=== PATIENT | male | born 1930 | race Caucasian/White ===

== ENCOUNTER 2018-09-27 06:23 | Day surgery (SDC) | payer MEDICARE, OTHER ==
[~2018-09-27] VITALS: Ht 165.1 cm; Wt 83.0 kg
[~2018-09-27 06:23] MED LIST: ALBU90OI61; ATOR10 PO; AZIT250 PO; CAND16 PO; CAND4; COD LIVER OIL1 EACH; FLUT.05NI; FLUT44OIA; FOLI1; HYDACE10B PO; HYDACE5; META800 PO; METO25ER PO; OMEP20ER PO; QVAR7.3 G1; VIT1CAPS12; VIT1CAPS12 PO; WARF5 PO
[2018-09-27] MEDS ORDERED: Aspirin EC81 MG PO (07:23)
[2018-09-27] MEDS ORDERED: QVAR REDIHALE10.6 G1 INH (07:24)
[2018-09-27] MEDS ORDERED: ALLO100 PO (07:25)
[2018-09-27] MEDS ORDERED: FOLIC ACID PO (07:29)
[2018-09-27] MEDS ORDERED: OMEGA 3 PO (07:29)
[2018-09-27] MEDS ORDERED: Flonase 0.05% N16 GM (07:30)
--- NOTE | 2018-09-27 07:48 | NUR ---
AT 0744 TIME OUT COMPLETE.
--- NOTE | 2018-09-27 07:56 | NUR ---
LINK COMPLETE; PT TOLERATED WELLL.
--- NOTE | 2018-09-27 08:06 | NUR ---
CALL LIGHT IN REACH.
--- NOTE | 2018-09-27 08:06 | NUR ---
PT'S DAUGHTER IN ROOM. PT TALKING WITH DAUGHTER.
[2018-09-27] MEDS ORDERED: Aspir 8181 MG PO (08:20)
--- NOTE | 2018-09-27 08:43 | NUR ---
DR TORRES IN ROOM TO SEE PT.
--- NOTE | 2018-09-27 09:16 | NUR ---
LINK DISCHARGE INSTRUCTIONS REVIEWED ALL QUESTIONS ANSWERED. PT ABLE TO TAKE SIPS OF WATER WITH NO ASPIRATION. 18 G IV DISCONTINUED FROM RIGHT HAND WITH INTACT CANNULA. PT ESCORTED OUT VIA WHEELCHAIR ESCORT.
== END 2018-09-27 22:49 | disposition home or self-care (01) ==
LOC: MHTC 06:23
DX: I33.0 Acute and subacute infective endocarditis (principal); G45.9 Transient cerebral ischemic attack, unspecified; Z79.01 Long term (current) use of anticoagulants
CPT/HCPCS: 93312; 93325; J7120

== ENCOUNTER → 2019-01-12 | Outpatient (CLI) | payer MEDICARE, OTHER ==
[~2019-01-12] MED LIST changes: +ALLO100 PO; +Aspir 8181 MG PO; +Aspirin EC81 MG PO; +FOLIC ACID PO; +Flonase 0.05% N16 GM; +OMEGA 3 PO; +QVAR REDIHALE10.6 G1 INH
== END | disposition home or self-care (01) ==
LOC: LAB SHORT 13:40 → PLD 13:40
DX: C44.219 Basal cell carcinoma of skin of left ear and external auricular canal (principal)
CPT/HCPCS: 88305

== ENCOUNTER 2019-01-22 08:09 | Day surgery (SDC) | payer MEDICARE, OTHER ==
[~2019-01-22 08:09] MED LIST changes: +Atacand8 MG PO; +CHOL10002 PO; +OMEG1CAP30 PO
[2019-01-23] MEDS ORDERED: ENOX80I SC (08:34)
== END 2019-01-22 16:29 | disposition home or self-care (01) ==
LOC: ATC 08:09
DX: Z51.81 Encounter for therapeutic drug level monitoring (principal); I10 Essential (primary) hypertension; E78.5 Hyperlipidemia, unspecified; E03.9 Hypothyroidism, unspecified; K21.9 Gastro-esophageal reflux disease without esophagitis; Z79.01 Long term (current) use of anticoagulants; Z95.2 Presence of prosthetic heart valve
CPT/HCPCS: 96372; J1650

== ENCOUNTER 2019-01-23 07:36 | Day surgery (SDC) | payer MEDICARE, OTHER ==
[2019-01-23] MEDS ORDERED: ENOX80I SC (08:34)
--- NOTE | 2019-01-23 16:33 | NUR ---
INFUSION STOP TIME, 1633.
== END 2019-01-23 16:30 | disposition home or self-care (01) ==
LOC: ATC 07:36
DX: Z51.81 Encounter for therapeutic drug level monitoring (principal); Z79.01 Long term (current) use of anticoagulants; I10 Essential (primary) hypertension; E03.9 Hypothyroidism, unspecified; E78.5 Hyperlipidemia, unspecified; I48.91 Unspecified atrial fibrillation; K21.9 Gastro-esophageal reflux disease without esophagitis; Z95.2 Presence of prosthetic heart valve
CPT/HCPCS: 96372; J1650

== ENCOUNTER 2019-01-24 07:15 | Day surgery (SDC) | payer MEDICARE, OTHER ==
[~2019-01-24 07:15] MED LIST changes: +ENOX80I SC
== END 2019-01-24 16:15 | disposition home or self-care (01) ==
LOC: ATC 07:15
DX: Z45.2 Encounter for adjustment and management of vascular access device (principal); Z95.2 Presence of prosthetic heart valve; Z79.01 Long term (current) use of anticoagulants; I48.91 Unspecified atrial fibrillation; I10 Essential (primary) hypertension; E03.9 Hypothyroidism, unspecified; E78.5 Hyperlipidemia, unspecified; K21.9 Gastro-esophageal reflux disease without esophagitis; Z87.891 Personal history of nicotine dependence
CPT/HCPCS: J1650

== ENCOUNTER 2019-01-26 07:38 | Day surgery (SDC) | payer MEDICARE, OTHER ==
[2019-01-27] MEDS ORDERED: WARF5 PO (07:33)
== END 2019-01-26 23:02 | disposition home or self-care (01) ==
LOC: ATC 07:38
DX: Z51.81 Encounter for therapeutic drug level monitoring (principal); E03.9 Hypothyroidism, unspecified; E78.5 Hyperlipidemia, unspecified; I10 Essential (primary) hypertension; I48.91 Unspecified atrial fibrillation; K21.9 Gastro-esophageal reflux disease without esophagitis; Z79.01 Long term (current) use of anticoagulants; Z95.2 Presence of prosthetic heart valve
CPT/HCPCS: J1650

== ENCOUNTER 2019-01-27 06:28 | Day surgery (SDC) | payer MEDICARE, OTHER ==
[~2019-01-27] VITALS: Ht 170.2 cm; Wt 79.3 kg
[~2019-01-27 06:28] MED LIST changes: -FLUT.05NI
[2019-01-27] MEDS ORDERED: WARF5 PO (07:33)
== END 2019-01-27 08:56 | disposition home or self-care (01) ==
LOC: ORSCSDS 06:28
PROVIDERS: Internal Medicine Gastroenterology
PROC: 0DBN8ZX Excision of Sigmoid Colon, Via Natural or Artificial Opening Endoscopic, Diagnostic (ICD-10-PCS; principal; 2019-01-27 08:00)
PROC: 0DBL8ZX Excision of Transverse Colon, Via Natural or Artificial Opening Endoscopic, Diagnostic (ICD-10-PCS; principal; 2019-01-27 08:00)
PROC: 0DBK8ZX Excision of Ascending Colon, Via Natural or Artificial Opening Endoscopic, Diagnostic (ICD-10-PCS; principal; 2019-01-27 08:00)
DX: R19.4 Change in bowel habit (principal); K63.5 Polyp of colon; D12.2 Benign neoplasm of ascending colon; D12.3 Benign neoplasm of transverse colon; K64.4 Residual hemorrhoidal skin tags; K62.5 Hemorrhage of anus and rectum; K57.30 Diverticulosis of large intestine without perforation or abscess without bleeding; Z86.010 Personal history of colon polyps; K21.9 Gastro-esophageal reflux disease without esophagitis; I10 Essential (primary) hypertension; E78.5 Hyperlipidemia, unspecified; I48.91 Unspecified atrial fibrillation; J44.9 Chronic obstructive pulmonary disease, unspecified; E03.9 Hypothyroidism, unspecified; Z87.891 Personal history of nicotine dependence; Z79.01 Long term (current) use of anticoagulants; Z79.82 Long term (current) use of aspirin; Z79.899 Other long term (current) drug therapy
CPT/HCPCS: 88305; J0330; J0461; J2405; J2704; J7120

== ENCOUNTER 2019-01-27 12:39 | Day surgery (SDC) | payer MEDICARE, OTHER ==
[~2019-01-27 12:39] MED LIST changes: +FLUT.05NI
== END 2019-01-27 16:49 | disposition home or self-care (01) ==
LOC: ATC 12:39
DX: Z51.81 Encounter for therapeutic drug level monitoring (principal); I10 Essential (primary) hypertension; I48.91 Unspecified atrial fibrillation; K21.9 Gastro-esophageal reflux disease without esophagitis; E03.9 Hypothyroidism, unspecified; E78.5 Hyperlipidemia, unspecified; Z79.01 Long term (current) use of anticoagulants; Z79.899 Other long term (current) drug therapy; Z87.891 Personal history of nicotine dependence; Z95.2 Presence of prosthetic heart valve
CPT/HCPCS: 96372; J1650

== ENCOUNTER 2019-01-28 00:12 | Day surgery (SDC) | payer MEDICARE, OTHER ==
[~2019-01-28 00:12] MED LIST changes: -FLUT.05NI
[2019-01-28 16:51] LABS: Bun/Creatinine Ratio 25.9 (12.0-20.0); Calcium, Blood 8.5 mg/dL (8.5-10.1); Creatinine, Blood 1.35 mg/dL (0.60-1.20); Potassium, Blood 4.4 mmol/L (3.5-5.5)
== END 2019-01-28 16:15 | disposition home or self-care (01) ==
LOC: ATC 00:12
PROVIDERS: Internal Medicine
DX: Z51.81 Encounter for therapeutic drug level monitoring (principal); I10 Essential (primary) hypertension; I48.91 Unspecified atrial fibrillation; E03.9 Hypothyroidism, unspecified; E78.5 Hyperlipidemia, unspecified; K21.9 Gastro-esophageal reflux disease without esophagitis; Z79.01 Long term (current) use of anticoagulants; Z79.899 Other long term (current) drug therapy; Z95.2 Presence of prosthetic heart valve
CPT/HCPCS: 80048; 96372; J1650

== ENCOUNTER 2019-01-29 07:44 | Day surgery (SDC) | payer MEDICARE, OTHER | END 2019-01-29 15:50 | disposition home or self-care (01) | LOC: ATC 07:44 | DX: Z51.81 Encounter for therapeutic drug level monitoring (principal); I10 Essential (primary) hypertension; I48.91 Unspecified atrial fibrillation; K21.9 Gastro-esophageal reflux disease without esophagitis; E03.9 Hypothyroidism, unspecified; E78.5 Hyperlipidemia, unspecified; Z79.01 Long term (current) use of anticoagulants; Z95.2 Presence of prosthetic heart valve; Z79.899 Other long term (current) drug therapy; Z87.891 Personal history of nicotine dependence | CPT/HCPCS: 96372; J1650 ==

== ENCOUNTER 2019-01-30 07:39 | Day surgery (SDC) | payer MEDICARE, OTHER ==
--- NOTE | 2019-01-30 08:13 | NUR ---
SENT PT TO ER R/T REPORT OF BLACK TARRY STOOLS X 3 DAYS POST COLONOSCOPY ON THURSDAY. NOTIFIED DR VICTOR MANUEL WOODY, HELD [place] PENDING BLOOD COUNTS; REPORT CALLED TO ELIO, ER CHARGE NURSE.
== END 2019-01-30 08:05 | disposition other institution (70) ==
LOC: ATC 07:39
DX: Z51.81 Encounter for therapeutic drug level monitoring (principal); I10 Essential (primary) hypertension; I48.91 Unspecified atrial fibrillation; E78.5 Hyperlipidemia, unspecified; E03.9 Hypothyroidism, unspecified; K21.9 Gastro-esophageal reflux disease without esophagitis; Z79.01 Long term (current) use of anticoagulants; Z95.2 Presence of prosthetic heart valve; Z79.899 Other long term (current) drug therapy; Z87.891 Personal history of nicotine dependence
CPT/HCPCS: 36416; 85610; J1650

== ENCOUNTER 2019-02-04 14:00 | Day surgery (SDC) | payer MEDICARE, OTHER | END 2019-02-04 15:23 | disposition home or self-care (01) | LOC: ATC 14:00 | DX: Z51.81 Encounter for therapeutic drug level monitoring (principal); I10 Essential (primary) hypertension; I48.91 Unspecified atrial fibrillation; K21.9 Gastro-esophageal reflux disease without esophagitis; E03.9 Hypothyroidism, unspecified; E78.5 Hyperlipidemia, unspecified; Z79.01 Long term (current) use of anticoagulants; Z95.2 Presence of prosthetic heart valve; Z79.899 Other long term (current) drug therapy; Z79.82 Long term (current) use of aspirin | CPT/HCPCS: 96372; J1650 ==

== ENCOUNTER 2019-02-05 15:02 | Day surgery (SDC) | payer MEDICARE, OTHER | END 2019-02-05 15:20 | disposition home or self-care (01) | LOC: ATC 15:02 | DX: Z51.81 Encounter for therapeutic drug level monitoring (principal); I48.91 Unspecified atrial fibrillation; I10 Essential (primary) hypertension; K21.9 Gastro-esophageal reflux disease without esophagitis; E03.9 Hypothyroidism, unspecified; E78.5 Hyperlipidemia, unspecified; Z95.2 Presence of prosthetic heart valve; Z79.01 Long term (current) use of anticoagulants; Z79.899 Other long term (current) drug therapy; Z87.891 Personal history of nicotine dependence | CPT/HCPCS: 96372; J1650 ==

== ENCOUNTER 2019-02-06 15:03 | Day surgery (SDC) | payer MEDICARE, OTHER | END 2019-02-06 15:17 | disposition home or self-care (01) | LOC: ATC 15:03 | DX: Z51.81 Encounter for therapeutic drug level monitoring (principal); E78.5 Hyperlipidemia, unspecified; I10 Essential (primary) hypertension; E03.9 Hypothyroidism, unspecified; Z79.01 Long term (current) use of anticoagulants; Z95.2 Presence of prosthetic heart valve | CPT/HCPCS: 96372; J1650 ==

== ENCOUNTER 2019-02-08 07:17 | Day surgery (SDC) | payer MEDICARE, OTHER | END 2019-02-08 14:20 | disposition home or self-care (01) | LOC: ATC 07:17 | DX: Z51.81 Encounter for therapeutic drug level monitoring (principal); I10 Essential (primary) hypertension; E78.5 Hyperlipidemia, unspecified; Z79.01 Long term (current) use of anticoagulants; Z95.2 Presence of prosthetic heart valve | CPT/HCPCS: 36416; 85610; 96372; J1650 ==

== ENCOUNTER 2019-02-09 00:13 | Day surgery (SDC) | payer MEDICARE, OTHER | END 2019-02-09 10:52 | disposition home or self-care (01) | LOC: ATC 00:13 | DX: Z51.81 Encounter for therapeutic drug level monitoring (principal); Z79.01 Long term (current) use of anticoagulants; Z95.2 Presence of prosthetic heart valve | CPT/HCPCS: 36416; 85610; 96372; J1650 ==

== ENCOUNTER 2019-02-10 00:05 | Day surgery (SDC) | payer MEDICARE, OTHER | END 2019-02-10 10:05 | disposition home or self-care (01) | LOC: ATC 00:05 | DX: Z51.81 Encounter for therapeutic drug level monitoring (principal); I48.91 Unspecified atrial fibrillation; I10 Essential (primary) hypertension; E03.9 Hypothyroidism, unspecified; E78.5 Hyperlipidemia, unspecified; K21.9 Gastro-esophageal reflux disease without esophagitis; Z95.2 Presence of prosthetic heart valve; Z79.01 Long term (current) use of anticoagulants; Z79.899 Other long term (current) drug therapy | CPT/HCPCS: 36416; 85610; 96372; J1650 ==

== ENCOUNTER → 2019-11-21 | Outpatient (CLI) | payer MEDICARE, OTHER ==
[2019-11-21 12:24] LABS: Adenovirus F 40/41 Not Detected (NOT DETECT); Astrovirus Not Detected (NOT DETECT); Campylobacter Sp Not Detected (NOT DETECT); Cryptosporidium Not Detected (NOT DETECT); Cyclospora Cayetanensis Not Detected (NOT DETECT); E. Coli O157 Not Detected (NOT DETECT); Entamoeba Histolytica Not Detected (NOT DETECT); Enteroaggregative E. coli-EAEC Not Detected (NOT DETECT); Enteropathogenic E. coli-EPEC Not Detected (NOT DETECT); Enterotoxigenic E. coli-ETEC Not Detected (NOT DETECT); Giardia Lamblia Not Detected (NOT DETECT); Norovirus GI/GII Not Detected (NOT DETECT); Plesiomonas Shigelloides Not Detected (NOT DETECT); Rotavirus A Not Detected (NOT DETECT); Salmonella Sp Not Detected (NOT DETECT); Sapovirus Not Detected (NOT DETECT); Shiga Toxin-prod E. coli-STEC Not Detected (NOT DETECT); Shigella/Enteroin E. coli-EIEC Not Detected (NOT DETECT); Vibrio Cholerae Not Detected (NOT DETECT); Vibrio Sp Not Detected (NOT DETECT); Yersinia Enterocolitica Not Detected (NOT DETECT)
== END | disposition home or self-care (01) ==
LOC: OLS 10:33 → LAB SHORT 10:33 → LAB FUT 11-15 10:45
PROVIDERS: Internal Medicine
DX: R19.7 Diarrhea, unspecified (principal)
CPT/HCPCS: 0097U